=== PATIENT | male | born 1990 | race Caucasian/White ===

== ENCOUNTER 2022-08-20 20:50 | Inpatient (IN) | payer BC ==
[~2022-08-20] VITALS: Ht 190.5 cm; Wt 109.3 kg
[2022-08-20 20:56] VITALS: BP_SYST 171
--- NOTE | 2022-08-20 21:01 | NUR ---
PATIENT RECENTLY DIAGNOSED WITH KIDNEY STONE AND PANCREATITIS X 1 WEEK, 10/10 ABDOMEN PAIN
--- NOTE | 2022-08-20 21:40 | NUR ---
PT BIB MOTHER FROM HOME C/O ABD PAIN 12/12. PT STATES NAUSEA X 1D. PT RESTING IN BED WITH RAILS UP VSS MOTHER BEDSIDE
--- NOTE | 2022-08-20 22:00 | NUR ---
ER at bedside examining patient.
[2022-08-20] MEDS ORDERED: KETOROLAC TROMETHAMINE 30 MG VIAL IVP ONE (22:15)
[2022-08-20] MEDS ORDERED: MORPHINE 4 MG INJ. 4 MG/ML VIAL IVP ONE (22:15)
[2022-08-20] MEDS ORDERED: NACL 0.9% 1,000 ML IV ONE (22:15)
[2022-08-20 22:46] LABS: BASOPHILS % (AUTO) 0.1 % (0.0-2.0); EOSINOPHILS % (AUTO) 0.2 % (0.0-4.0); HEMATOCRIT 47.6 % (36-54); HEMOGLOBIN 15.8 g/dL (14.0-18.0); LYMPHOCYTES % (AUTO) 5.8 % (20.5-51.5); MEAN CORPUSCULAR HEMOGLOBIN 30 pg (27-31); MEAN CORPUSCULAR HGB CONC 33 % (32-36); MEAN CORPUSCULAR VOLUME 91 fL (79.0-98.0); MONOCYTES # (AUTO) 1.3 K/uL (0.0-1.0); MONOCYTES % (AUTO) 7.6 % (1.7-9.3); NEUTROPHILS # (AUTO) 15.2 K/uL (1.8-7.7); NEUTROPHILS % (AUTO) 86.3 % (40.0-70.0); PLATELET COUNT (AUTO) 312 K/uL (130-430); RED BLOOD CELL COUNT(AUTO) 5.22 MIL/uL (4.2-6.2); RED CELL DISTRIBUTION WIDTH 12.8 % (9.0-15.0); WHITE BLOOD COUNT (AUTO) 17.6 K/uL (4.8-10.8)
[2022-08-20 22:56] LABS: ALANINE AMINOTRANSFERASE 49 U/L (12-78); ALBUMIN 3.7 g/dL (3.4-4.8); ANION GAP 11 (5-15); ASPARTATE AMINOTRANSFERASE 23 U/L (10-37); CALCIUM 9.3 mg/dL (8.4-11.0); CHLORIDE 98 mmol/L (98-107); CREATININE 1.06 mg/dL (0.55-1.30); GFR AFRICAN AMERICAN 105 mL/min (>90); GLUCOSE 121 mg/dL (70-99); LIPASE 80 U/L (73-393); TOTAL BILIRUBIN 0.9 mg/dL (0.0-1.0); UREA NITROGEN, BLOOD 9 mg/dL (8-21)
[2022-08-20 23:00] LABS: ALCOHOL, BLOOD < 3 mg/dL (<10)
[2022-08-20 23:39] LABS: BILIRUBIN,URINE 2+ (NEGATIVE); BLOOD, URINE NEGATIVE (NEGATIVE); CLARITY/URINE CLEAR (CLEAR); COLOR,URINE YELLOW (YELLOW); GLUCOSE,URINE NEGATIVE (NEGATIVE); KETONES,URINE 3+ (NEGATIVE); LEUKOCYTE ESTERASE ,URINE NEGATIVE (NEGATIVE); NITRITE, URINE NEGATIVE (NEGATIVE); PROTEIN URINE TRACE (NEGATIVE)
[2022-08-20 23:49] LABS: BACTERIA,URINE None Seen /HPF (None Seen); RBC,URINE 0-3 /HPF (0-3); WBC,URINE 0-3 /HPF (0-3)
[2022-08-20 23:50] LABS: CALCIUM OXALATE CRYSTALS,UR 0-10 /HPF (None Seen)
[2022-08-20 23:51] LABS: MUCUS,URINE 2+ /LPF (None Seen)
[2022-08-21] MEDS ORDERED: NACL 0.9% 1,000 ML IV ONE ×2 (01:00→01:15)
[2022-08-21] MEDS ORDERED: MORPHINE 4 MG INJ. 4 MG/ML VIAL IVP ONE ×3 (01:15→04:30)
--- NOTE | 2022-08-21 04:50 | NUR ---
PT RETURNED FROM C/T SCAN RESTING COMFORTABLY IN BED
[2022-08-21] MEDS ORDERED: HYDROmorphone 2 MG/ML VIAL IVP ONE (06:15)
[2022-08-21] MEDS ORDERED: PIPERACILLIN/TAZO 3.375 GM in NS 50 ML IV ONE (06:15)
[2022-08-21] MEDS ORDERED: KETAMINE HCL IN 0.9 % NACL 50 MG/5 ML SYRINGE IVP ONE (06:15)
[2022-08-21] MEDS ORDERED: PIPERACILLIN/TAZOBACTAM 3.375 GM/VIAL (ZOSYN) IV ONE (06:22)
[2022-08-21] MEDS ORDERED: KETOROLAC TROMETHAMINE 30 MG VIAL IVP ONE (07:00)
[2022-08-21] MEDS ORDERED: ZOLPIDEM TARTRATE 5 MG TABLET PO PRN (08:30)
[2022-08-21] MEDS ORDERED: MUPIROCIN 2% TOPICAL OINTMENT 22 GM NS PRN (08:30)
[2022-08-21] MEDS ORDERED: MORPHINE 2 MG/ML INJ. SYRINGE IVP PRN ×2 (08:30)
[2022-08-21] MEDS ORDERED: POTASSIUM CHLORIDE 20 MEQ TAB.PRT.SR PO PRN (08:30)
[2022-08-21] MEDS ORDERED: ACETAMINOPHEN 325 MG TABLET PO PRN ×2 (08:30→09:15)
[2022-08-21] MEDS ORDERED: MAGNESIUM SULFATE 50 ML IV PRN (08:30)
[2022-08-21] MEDS ORDERED: DOCUSATE SODIUM 100 MG CAPSULE PO PRN (08:30)
[2022-08-21] MEDS ORDERED: D5NS 1,000 ML IV ONE (08:30)
--- NOTE | 2022-08-21 08:56 | NUR ---
Admit bed requested Patient will be admitted to care of Dr.SINGH Escamilla Admitted to MEDSURGE unit. Diagnosis ACUTE CHOLECYSTITIS Inpatient (Yes or No) Y Observation (Yes or No) N Orientation concerns or request close to nursing station (Yes or No) N Covid Status N/A On vent or bipap N Isolation requirements N/A Needs a sitter N From Home (Yes or if No enter name of facility) N Requires Dialysis (Yes or No) N Med Rec Completed (Yes of No)
--- NOTE | 2022-08-21 09:15 | NUR ---
DR CAST AT BEDSIDE FOR EVALUATION
[2022-08-21] MEDS ORDERED: HYDROmorphone 2 MG/ML VIAL IVP PRN (09:30)
[2022-08-21 10:00] VITALS: BP_SYST 143
--- NOTE | 2022-08-21 10:00 | NUR ---
Mr. Hawthorne has been admitted to room 118-A. He has been assessed as indicated. His mother is at the bedside. He is swiftyly being taken to HIDA scan.
--- NOTE | 2022-08-21 12:00 | NUR ---
returns from HIDA scan in severe abdominal pain.
[2022-08-21] MEDS: PIPERACILLIN/TAZO 3.375 GM in NS 50 ML IV SCH ×2 (12:28→18:17)
--- NOTE | 2022-08-21 14:00 | NUR ---
contacted. current pain medication is not adequate for relief. new orders received.
[2022-08-21] MEDS: HYDROmorphone 2 MG/ML VIAL IVP PRN ×3 (14:20→21:13)
[2022-08-21] MEDS: ONDANSETRON HCL 4 MG/2 ML VIAL IVP PRN ×2 (14:24→21:13)
[2022-08-21 16:35] VITALS: BP_SYST 138
--- NOTE | 2022-08-21 17:00 | NUR ---
New IV access established with difficulty. Pain meds given.
--- NOTE | 2022-08-21 18:00 | NUR ---
Mr Christoph states no relief from last dose of pain medication. He is still unable to relax. PRN Ativan given
[2022-08-21] MEDS: LORazepam 2 MG/ML VIAL IVP PRN (18:29)
--- NOTE | 2022-08-21 19:41 | NUR ---
PAGED PAGED DOCTOR MEANS
--- NOTE | 2022-08-21 19:45 | NUR ---
This copywriter spoke with DR Jacob. He states that he will answer family questions and concerns tomorrow at 0700. Miss Hawthorne was called and made aware of this
[2022-08-21 20:00] VITALS: BP_SYST 149
--- NOTE | 2022-08-21 20:30 | NUR ---
dr biswas spoke with pt and stated no surgery at this time. surgery will be outpatient. md is treating the pancreatis at this time. family updated at bedside
--- NOTE | 2022-08-21 23:28 | NUR ---
PAGED PAGED DOCTOR CAST
--- NOTE | 2022-08-21 23:36 | NUR ---
CONSULTATION PAGED/CALLED Reason for Consultation: JACKELIN MARCIE Person Who was Notified:PAPO Consulting Physician: NAHUN HOLT [employer] Member Specialty: Ordering Physician: Francisca CAST
[2022-08-22] VITALS (7 sets, daily range): BP systolic 131–153
[2022-08-22] MEDS ORDERED: KETOROLAC TROMETHAMINE 30 MG VIAL IM PRN
[2022-08-22 00:01] LABS: BARBITURATE, URINE NEGATIVE (NEG <=200); BENZODIAZEPINE, URINE NEGATIVE (NEG <=150); CANNABINOID, URINE POSITIVE (NEG <=50); COCAINE, URINE NEGATIVE (NEG <=150); METHAMPHETAMINES SCREEN,URINE NEGATIVE (NEG <=500); OPIATE, URINE POSITIVE (NEG <=100); PHENCYCLIDINE SCREEN,URINE NEGATIVE (NEG <=25); URINE AMPHETAMINE NEGATIVE (NEG <=500); URINE METHADONE NEGATIVE (NEG <=200); URINE OXYCODONE SCREEN NEGATIVE (NEG <=100); URINE PROPOXYPHENE SCREEN NEGATIVE (NEG <=300)
[2022-08-22 00:02] LABS: UR TRICYCLIC ANTIDEPRESSANTS NEGATIVE (NEG <=300)
[2022-08-22] MEDS: PANTOPRAZOLE SODIUM 40 MG/VIAL (PROTONIX) IVP SCH ×3 (00:03→21:30)
[2022-08-22] MEDS: PIPERACILLIN/TAZO 3.375 GM in NS 50 ML IV SCH ×4 (00:03→18:44)
--- NOTE | 2022-08-22 00:05 | NUR ---
spoke with dr lemus. family wanted Toradol to be given. per dr lemus Toradol is contra indicated due to pt having black vomit. Gi consulted. diluated pain medication continued.
[2022-08-22] MEDS: HYDROmorphone 2 MG/ML VIAL IVP PRN ×7 (00:31→20:04)
--- NOTE | 2022-08-22 00:46 | NUR ---
dr biswas spoke with pt dad on phone per request to go over plan of care and answer questions. Prosper gonsalez and Jn charge nurse also at bedside answering questions from family and looking over patient
[2022-08-22] MEDS: SUCRALFATE 1 GM TABLET PO SCH ×4 (02:26→21:29)
[2022-08-22] MEDS: ONDANSETRON HCL 4 MG/2 ML VIAL IVP PRN (03:53)
[2022-08-22 05:43] LABS: BASOPHILS % (AUTO) 0.1 % (0.0-2.0); HEMATOCRIT 53.7 % (36-54); HEMOGLOBIN 17.7 g/dL (14.0-18.0); LYMPHOCYTES # (AUTO) 0.7 K/uL (1.0-5.5); MEAN CORPUSCULAR HEMOGLOBIN 30 pg (27-31); MEAN CORPUSCULAR HGB CONC 33 % (32-36); MEAN CORPUSCULAR VOLUME 91 fL (79.0-98.0); MONOCYTES # (AUTO) 1.7 K/uL (0.0-1.0); MONOCYTES % (AUTO) 4.6 % (1.7-9.3); NEUTROPHILS # (AUTO) 34.1 K/uL (1.8-7.7); NEUTROPHILS % (AUTO) 93.3 % (40.0-70.0); PLATELET COUNT (AUTO) 329 K/uL (130-430); RED BLOOD CELL COUNT(AUTO) 5.89 MIL/uL (4.2-6.2)
[2022-08-22 05:51] LABS: WHITE BLOOD COUNT (AUTO) 36.5 K/uL (4.8-10.8)
[2022-08-22 06:24] LABS: CALCIUM 8.8 mg/dL (8.4-11.0); CREATININE 0.82 mg/dL (0.55-1.30)
--- NOTE | 2022-08-22 06:43 | NUR ---
paged dr lemus for critical lab value wbc 35.6
--- NOTE | 2022-08-22 07:44 | NUR ---
PAGED DR CAST FOR CRITICAL LAB VALUE WBC. NO ANSWER
--- NOTE | 2022-08-22 08:15 | NUR ---
OPENING NOTE; PT RESTING IN BED, C/O ABD PAIN. FAMILY MEMBER UPSET BECAUSE NO DOCTOR CAME TO VISIT PT LAST NIGHT. EXPLAINED THAT NURSES TRIED TO REACH OUT DOCTORS SEVERAL TIMES AND DR USUALLY COMES IN THE MORNING TO DO THE ROUNDING. FAMILY STILL UPSET REGARDLESS.
[2022-08-22] MEDS ORDERED: DIATR MEGLU/DIATRIZ SOD 30 ML SOLUTION PO ONE (08:40)
--- NOTE | 2022-08-22 08:44 | NUR ---
CONSULT ID SEPSIS DR CONTRERAS [id number] S/W [facility] EXCHANGE
[2022-08-22] MEDS ORDERED: HYDROmorphone 2 MG/ML VIAL IVP ONE (09:00)
--- NOTE | 2022-08-22 09:00 | NUR ---
TRINITY; AT BEDSIDE, ASSESSING PT. RECEIVED NEW ORDERS
--- NOTE | 2022-08-22 09:15 | NUR ---
NEW PIV TO LAC 20G INSERTED FOR CT SCAN WITH CONTRAST
[2022-08-22] MEDS ORDERED: HYDROmorphone 2 MG/ML VIAL ONE (09:21)
[2022-08-22] MEDS: D5NS 1,000 ML IV SCH ×2 (09:31→18:44)
--- NOTE | 2022-08-22 09:32 | NUR ---
pain medication administered. will cont to monitor for the effectiveness of med
[2022-08-22 10:11] LABS: ALBUMIN 2.5 g/dL (3.4-4.8); BILIRUBIN,DIRECT 0.4 mg/dL (0.0-0.3); THYROID STIMULATING HORMONE 1.73 uIu/mL (0.36-3.74); TOTAL BILIRUBIN 0.7 mg/dL (0.0-1.0)
--- NOTE | 2022-08-22 10:16 | NUR ---
CALLED AND MADE HIM AWARE OF INC WBC
--- NOTE | 2022-08-22 11:10 | NUR ---
NOTES; PT C/O ROOM IS HOT, CALLED HERSON CHRISTIANSON AND LEFT VOICE MESSAGE TO DEC ROOM TEMP
[2022-08-22] MEDS: VANCOMYCIN HCL 1,500 MG in NS 250 ML IV SCH ×2 (12:05→17:33)
--- NOTE | 2022-08-22 12:15 | NUR ---
NOTES; PT VOMITED BLACK THINK LIQUID. PT REFUSED ZOFRAN BECAUSE IT DOES SEEM LIKE WORKING.
--- NOTE | 2022-08-22 13:13 | NUR ---
NOTES; PAIN MEDICATION GIVEN. WILL CONT TO MONITOR FOR THE EFFECTIVENESS OF MED
--- NOTE | 2022-08-22 13:20 | NUR ---
CALLED REGARDING CT SCAN RESULT. THE RESULT WILL BE AVAILABLE SOON
--- NOTE | 2022-08-22 14:17 | NUR ---
CONSULT PULMONOLOGY ABNORMAL CT FINDINGS DR SOTO, [facility] [phone] S/W [facility] EXCHANGE
--- NOTE | 2022-08-22 14:21 | NUR ---
CONSULT HEMATOLOGY PORTAL VEIN THROMBOSIS NICKIE BECKETT [phone] S/W [facility] OFFICE
--- NOTE | 2022-08-22 14:26 | NUR ---
CONSULT ID SEPSIS DR CONTRERAS [phone] S/W [facility] EXCHANGE
--- NOTE | 2022-08-22 15:06 | NUR ---
MADE AWARE OF CT SCAN RESULT.
--- NOTE | 2022-08-22 15:45 | NUR ---
PT IS TELE NOW. PUT TELE BOX ON.
[2022-08-22 16:00] LABS: INR 1.3 (0.80-1.20); PROTHROMBIN TIME 12.9 SECS (9.5-12.5)
--- NOTE | 2022-08-22 16:31 | NUR ---
SPOKE WITH PATIENT FAMILY OVER THE PHONE REGARDING CT RESULT
[2022-08-22] MEDS ORDERED: HEPARIN SODIUM,PORCINE 2000 UNITS/0.4 ML BOLUS IVP PRN (17:00)
[2022-08-22] MEDS ORDERED: HEPARIN SODIUM,PORCINE 5,000 UNITS/ML VIAL IVP ONE (17:00)
--- NOTE | 2022-08-22 17:18 | NUR ---
diet spoke with Dr Nancy carter to increase to clear liquid diet
[2022-08-22] MEDS: KETOROLAC TROMETHAMINE 30 MG VIAL IVP PRN ×2 (17:26→21:36)
--- NOTE | 2022-08-22 17:30 | NUR ---
SPOKE WITH PHARMACISTRAI THAT OKAY TO Y TUBING HEPARIN AND IV ATB(VANCO AND ZOSYN).
[2022-08-22] MEDS: HEPARIN 25,000 UNITS/D5W 250ML 250 ML IV PRN (17:50)
[2022-08-22 18:44] LABS: C-REACTIVE PROTEIN QUANT 38.6 mg/dL (0-0.5)
--- NOTE | 2022-08-22 18:45 | NUR ---
DR CAST CALLED GAVE ORDER TO TRANSFER PT TO HIGHER LEVEL OF CARE UNDER IR/VASCULAR SURGEON.CALLED [facility] DIPPER NEGRITO AND NOTIFIED. SPOKE TO PATIENT AND NOTIFIED. MOTHER AND SISTER AT BED SIDE. ALL AGREED FOR TRANSFER TO HIGHER LEVEL OF CARE.
--- NOTE | 2022-08-22 19:00 | NUR ---
CLOSING NOTE; PT RESTING IN BED, IVF RUNNING ORDERED. HEPARIN DRIP D/C LEFT HAND IV BECAUSE PT C/O PAIN. NO IV INFILTRATION OR INFECTION NOTED. HEPARIN DRIP RUNNING ORDERED. FAMILY MEMBER AT BEDSIDE. ENCOURAGED PT TO USE CALL LIGHT FOR ASSISTANCE. WILL ENDORSE CARE TO BOBTAILER NURSE
--- NOTE | 2022-08-22 20:35 | NUR ---
Patient referred to [facility]- refused due to saturation [facility] [phone]-information sent-vascular surgeon stated-no intervention needed-anti coagulation recommended [phone]-information sent [facility] [place], [place] [phone]- information sent [facility] -refused due to saturation [phone]-information sent
[2022-08-22] MEDS ORDERED: METOPROLOL TARTRATE 25 MG TABLET PO ONE (21:15)
[2022-08-23] MEDS: PIPERACILLIN/TAZO 3.375 GM in NS 50 ML IV SCH ×3 (00:20→12:06)
[2022-08-23 00:24] LABS: BASOPHILS # (AUTO) 0.1 K/uL (0.0-0.2); BASOPHILS % (AUTO) 0.3 % (0.0-2.0); HEMATOCRIT 52.9 % (36-54); HEMOGLOBIN 17.4 g/dL (14.0-18.0); LYMPHOCYTES % (AUTO) 2.7 % (20.5-51.5); MEAN CORPUSCULAR HEMOGLOBIN 30 pg (27-31); MEAN CORPUSCULAR HGB CONC 33 % (32-36); MEAN CORPUSCULAR VOLUME 92 fL (79.0-98.0); MONOCYTES % (AUTO) 5.6 % (1.7-9.3); NEUTROPHILS # (AUTO) 32.6 K/uL (1.8-7.7); NEUTROPHILS % (AUTO) 91.4 % (40.0-70.0); PLATELET COUNT (AUTO) 390 K/uL (130-430); RED BLOOD CELL COUNT(AUTO) 5.77 MIL/uL (4.2-6.2); RED CELL DISTRIBUTION WIDTH 13.6 % (9.0-15.0)
[2022-08-23 00:43] LABS: INR 1.2 (0.80-1.20)
[2022-08-23 00:44] LABS: WHITE BLOOD COUNT (AUTO) 35.7 K/uL (4.8-10.8)
[2022-08-23] MEDS: HEPARIN SODIUM,PORCINE 3000 UNITS/0.6 ML BOLUS IVP PRN ×2 (00:58→08:15)
[2022-08-23 01:00] VITALS: BP_SYST 147
[2022-08-23] MEDS: HEPARIN 25,000 UNITS/D5W 250ML 250 ML IV PRN ×2 (01:00→08:29)
--- NOTE | 2022-08-23 01:07 | NUR ---
Heparin drip adjust per protocol. ptt 28.2. Bolus of 3000units given ivp and rate increased by 2ml/hr. Lanie goodwin witnessed rate change. family at bedside and updated of lab result and rate change Addendum: 08/23/22 at 0116 by Luis Martínez RN ptt 28.3
[2022-08-23] MEDS: VANCOMYCIN HCL 1,500 MG in NS 250 ML IV SCH (01:10)
[2022-08-23] MEDS: HYDROmorphone 2 MG/ML VIAL IVP PRN ×2 (01:43→08:14)
--- NOTE | 2022-08-23 01:48 | NUR ---
SPOKE WITH LATRICE FROM [facility], [facility] IS DECLINING THE PATIENT, THE DR RECOMMENDS A CONSERVATIVE APPROACH WITH MEDICATION
--- NOTE | 2022-08-23 02:48 | NUR ---
Pt appears to have pain controlled better during this shift compared to last night. pt able to sleep for multiples hours during shift so far. Girlfriend at bedside. All questions answered at this time
[2022-08-23] MEDS: D5NS 1,000 ML IV SCH (05:15)
[2022-08-23 05:44] LABS: BASOPHILS % (AUTO) 0.1 % (0.0-2.0); HEMATOCRIT 51.2 % (36-54); HEMOGLOBIN 16.8 g/dL (14.0-18.0); LYMPHOCYTES # (AUTO) 1.4 K/uL (1.0-5.5); LYMPHOCYTES % (AUTO) 4.2 % (20.5-51.5); MEAN CORPUSCULAR HEMOGLOBIN 30 pg (27-31); MEAN CORPUSCULAR HGB CONC 33 % (32-36); MEAN CORPUSCULAR VOLUME 92 fL (79.0-98.0); MONOCYTES # (AUTO) 1.9 K/uL (0.0-1.0); MONOCYTES % (AUTO) 6.1 % (1.7-9.3); NEUTROPHILS # (AUTO) 28.7 K/uL (1.8-7.7); NEUTROPHILS % (AUTO) 89.6 % (40.0-70.0); PLATELET COUNT (AUTO) 379 K/uL (130-430); RED BLOOD CELL COUNT(AUTO) 5.58 MIL/uL (4.2-6.2); RED CELL DISTRIBUTION WIDTH 13.7 % (9.0-15.0)
[2022-08-23] MEDS: KETOROLAC TROMETHAMINE 30 MG VIAL IVP PRN ×2 (05:54→12:02)
[2022-08-23 06:12] LABS: WHITE BLOOD COUNT (AUTO) 32.1 K/uL (4.8-10.8)
[2022-08-23 06:14] LABS: ALBUMIN 2.2 g/dL (3.4-4.8); CREATININE 1.83 mg/dL (0.55-1.30); TOTAL BILIRUBIN 0.7 mg/dL (0.0-1.0)
--- NOTE | 2022-08-23 06:33 | NUR ---
[facility] tushar Spoke with Lisa. Dr Koch general surgeon from [facility] was trying to speak with Dr Chung about the Pt. I provided a contact number. Per Lisa [facility] has 50 patients waiting in the ER and 20 in the transfer unit. So no bed available at this time.
--- NOTE | 2022-08-23 06:40 | NUR ---
WBC 32.1. trending down. Dr Borden notified of lab value. He said he does not need to be notified if its still trending down.
--- NOTE | 2022-08-23 07:37 | NUR ---
report given to am nurse. endorse ptt results and adjustment to am nurse. dr lemus at bedside speaking with family.
[2022-08-23 08:05] VITALS: BP_SYST 139
--- NOTE | 2022-08-23 08:05 | NUR ---
INITIAL ROUNDS Received pt AAOx4, no s/s resp distress, c/o abd pain-will check on pain medications. IVF infusing well to LAC at ordered rate, Heparin drip infusing well at current rate of 17 ml/hr per protocol. Will adjust Heparin drip rate per protocol. Plan of care for the day reviewed with pt and the pt's mom-both verbalized their understanding. Both are aware that the pt may be transferred to another hospital today for higher level of care. Pain management, skin and safety precautions discussed-teach back done. Call light within reach.
[2022-08-23] MEDS: SUCRALFATE 1 GM TABLET PO SCH (08:08)
[2022-08-23] MEDS: PANTOPRAZOLE SODIUM 40 MG/VIAL (PROTONIX) IVP SCH (08:08)
--- NOTE | 2022-08-23 08:50 | NUR ---
[facility] PLACEMENT Spoke with Bria from patient placement at [facility] regarding possible transfer to their ICU. No bed number given at this time, stated she will call me back with the bed and the pick pack worker time once arranged.
[2022-08-23] MEDS ORDERED: METOPROLOL TARTRATE 25 MG TABLET PO SCH (09:00)
--- NOTE | 2022-08-23 10:14 | NUR ---
[facility] PLACEMENT Bria from [facility] placement called back to verify Dr. Andi Chung's contact number for MD to MD discussion-phone number verified-note Dr. Chung gave the MD at [facility] his cell phone number. No bed at this time.
[2022-08-23] MEDS ORDERED: FLUCONAZOLE 200 mg/ NS 100 ML IV SCH (11:00)
--- NOTE | 2022-08-23 11:12 | NUR ---
CONSULTATION PAGED/CALLED Reason for Consultation: ELEV CR, POSS 3RD SPACING Person Who was Notified: DR. JONES Consulting Physician: ROMEO JONES [employer] Specialty: Ordering Physician: REBECCA CAST Addendum: 08/23/22 at 1115 by Gurpreet Lipscomb II, CNA TOLD IN PERSON
--- NOTE | 2022-08-23 11:30 | NUR ---
[facility] TRANSPORT CCRN Spoke with [facility] transport CCRN and gave report on the pt. She stated the pt will be transferred to [facility] today, she will call me back with the room # and picker and sorter load and unload time.
[2022-08-23 11:40] VITALS: BP_SYST 129
[2022-08-23 12:30] LABS: BASOPHILS % (AUTO) 0.1 % (0.0-2.0); HEMATOCRIT 47.1 % (36-54); HEMOGLOBIN 15.5 g/dL (14.0-18.0); LYMPHOCYTES # (AUTO) 1.3 K/uL (1.0-5.5); LYMPHOCYTES % (AUTO) 4.3 % (20.5-51.5); MEAN CORPUSCULAR HEMOGLOBIN 30 pg (27-31); MEAN CORPUSCULAR HGB CONC 33 % (32-36); MEAN CORPUSCULAR VOLUME 92 fL (79.0-98.0); MONOCYTES # (AUTO) 2.2 K/uL (0.0-1.0); MONOCYTES % (AUTO) 7.4 % (1.7-9.3); NEUTROPHILS # (AUTO) 26.3 K/uL (1.8-7.7); NEUTROPHILS % (AUTO) 88.2 % (40.0-70.0); PLATELET COUNT (AUTO) 345 K/uL (130-430); RED BLOOD CELL COUNT(AUTO) 5.12 MIL/uL (4.2-6.2); RED CELL DISTRIBUTION WIDTH 13.7 % (9.0-15.0); WHITE BLOOD COUNT (AUTO) 29.8 K/uL (4.8-10.8)
[2022-08-23 12:38] VITALS: BP_SYST 129
[2022-08-23] MEDS: LORazepam 2 MG/ML VIAL IVP PRN (13:25)
--- NOTE | 2022-08-23 13:30 | NUR ---
ANXIOUS Pt anxious about flight, pt given Ativan as ordered by physiotherapist's assistant.
--- NOTE | 2022-08-23 14:10 | NUR ---
PT TRANSFERRED Report given to Eli NORMAN at [facility]. Transfer packet with Transfer Orders and Medication Reconciliation form given to [facility] [employer] with report. Exitcare provided explained and provided to pt's mother Mariella-pt on pain medication and sleepy. [facility] ID band removed, replaced with ID band with pt's name and . All belongings sent with patient's mother Mariella. Patient only took his cell phone and the shorts he was wearing. Patient left floor via gurney escorted by [facility] and CCRN to helicopter in no distress.
[2022-08-24 12:06] LABS: FERRITIN 563 ng/mL (30-400)
[2022-08-24 13:07] LABS: HEPATITIS A AB, IgM Negative (Negative); HEPATITIS B CORE AB, IgM Negative (Negative); HEPATITIS B SURFACE AG Negative (Negative)
[2022-08-24 15:07] LABS: ANTI NUCLEAR AB WITH REFLEX Negative (Negative)
== END 2022-08-23 16:21 | disposition short-term general hospital (02) | DRG 871 ==
LOC: SED 20:50 → SMU 08-21 08:22 → STU 08-22 15:28
PROVIDERS: ADMIT General Practice; ATTEND General Practice
DX: A41.9 Sepsis, unspecified organism (principal); I81 Portal vein thrombosis; K55.059 Acute (reversible) ischemia of intestine, part and extent unspecified; D68.51 Activated protein C resistance; E87.1 Hypo-osmolality and hyponatremia; N17.9 Acute kidney failure, unspecified; K81.0 Acute cholecystitis; R18.8 Other ascites; E87.6 Hypokalemia; F12.90 Cannabis use, unspecified, uncomplicated; E66.9 Obesity, unspecified; F10.10 Alcohol abuse, uncomplicated; Y90.9 Presence of alcohol in blood, level not specified; K52.9 Noninfective gastroenteritis and colitis, unspecified; Z20.822 Contact with and (suspected) exposure to COVID-19; I10 Essential (primary) hypertension; K82.8 Other specified diseases of gallbladder; Z68.30 Body mass index [BMI] 30.0-30.9, adult; Z87.891 Personal history of nicotine dependence
CPT/HCPCS: 36415; 76376; 76700-TC; 78226; 80048; 80053; 80074; 80076; 80307; 81000; 81403; 81407; 81479; 82150; 82728; 82977; 83037; 83605; 83690; 83735; 84443; 85025; 85610-TC; 85730-TC; 86038; 86140; 86592; 86780; 86886; 86900; 86901; 87040; 99285; A9537; C9113; G0378; G0482; J1170; J1450; J1644; J1885; J2060; J2270; J2405; J2543; J3370; J7050; Q9964; Q9967